=== PATIENT | female | born 1965 | race Caucasian/White ===

== ENCOUNTER 2020-05-30 10:19 | Emergency (ER) | payer OTHER, SELFPAY ==
--- NOTE | ~2020-05-30 | XR_ITS ---
EXAMINATION: XR foot LT min 3V DATE: 05/30/2020 11:03 INDICATION: Left foot pain TECHNIQUE: Dorsoplantar, lateral, and 2 oblique views of the left foot were obtained. COMPARISON: 12/24/2006 FINDINGS: There is no fracture, dislocation, or subluxation. The bones, soft tissues, and joint space s are normal. IMPRESSION: 1. No acute osseous abnormality. Reviewed, dictated and finalized at location A.
[2020-05-30 10:33] VITALS: BP 159/76; PULSE 89; RESP 16; TEMP 37.4; O2SAT 99
--- NOTE | 2020-05-30 10:35 | ED.LOWEXIN ---
HPI - Extremity Injury (Lower) General Chief Complaint: Extremity Injury, Lower Stated Complaint: Foot injury Time Seen by Provider: 05/30/20 10:40 Source: patient and RN notes reviewed Mode of arrival: ambulatory Limitations: no limitations History of Present Illness HPI Narrative: This is a 54 years old female presents to the office for an evaluation of left foot pain for two to three days. She does not recall injury/trauma. However, she was doing exercise (lots of jumping/walking) and went shopping yesterday with sandal. Pain is worse this morning at around 4am; which she took ibuprofen for it. Admits to history of left ankle fracture in the past. She also recalls broken toe; but she does not call it was left or right toe. Denies history of gout. Denies history of osteopenia or osteoporosis. Related Data Home Medications Medication Instructions Recorded Confirmed levothyroxine 50 mcg PO DAILY 05/30/20 05/30/20 Allergies Allergy/AdvReac Type Severity Reaction Status Date / Time azithromycin Allergy Mild RASH Verified 08/21/16 09:46 erythromycin base Allergy Mild RASH Verified 08/21/16 09:46 Penicillins Allergy Mild HIVES, Verified 08/21/16 09:46 FEVER sulfamethoxazole Allergy Unknown RASH Verified 08/21/16 09:46 trimethoprim Allergy Unknown RASH Verified 08/09/16 17:47 Review of Systems Review of Systems: Narrative: CONSTITUTIONAL: Denies fever CARDIOVASCULAR: Denies chest pain RESPIRATORY: Denies dyspnea GASTROINTESTINAL: Denies abdominal pain, nausea, vomiting SKIN: Denies rash/skin lesions/tear/abrasion MUSCULOSKELETAL: Reports left foot with fourth toe pain and swelling without redness/bruise. NEUROLOGIC: Denies lightheaded All other systems reviewed are negative, except as documented in HPI. [facility] Past Medical History Medical History (Updated 05/30/20 @ 10:56 by SULAIMAN Hernandez) Hx of fracture of ankle left ankle Hypothyroidism Seasonal allergies Surgical History Surgical History (Updated 05/30/20 @ 10:38 by SULAIMAN Hernandez) Hx of tonsillectomy Family History Family History (Updated 05/30/20 @ 10:39 by SULAIMAN Hernandez) Mother Rheumatoid arthritis Father Hodgkin's lymphoma Comments At time of signature, I agree with nursing past medical, surgical, social and family history. There is no relevant family history pertinent to the presenting complaint. Exam Narrative: Exam Narrative: GENERAL: This is a well-nourished, well-developed patient, in no apparent distress. CARDIOVASCULAR: Regular rate and rhythm without murmurs, gallops, or rubs. RESPIRATORY: Clear to auscultation. Breath sounds equal bilaterally. No wheezes, rales, or rhonchi. GASTROINTESTINAL: Abdomen soft, non-tender, nondistended. Bowel sounds are active. No guarding. SKIN: warm, intact with no suspicious lesions or rash, good texture and turgor. NEURO: awake, alert, and oriented to person, place and time. There were no obvious focal neurologic abnormalities. EXTREMITIES:Right ankle and foot normal. The left lateral ankle not swollen but there is tenderness and swelling over the dorsum of the foot especially between 2-4toes without obvious erythema. Range of motion limited secondary to pain. No deformity. The skin is intact. Course Vital Signs Vital signs: Vital Signs Temperature 99.3 F 05/30/20 10:33 Pulse Rate 89 05/30/20 10:33 Respiratory Rate 16 05/30/20 10:33 Blood Pressure 159/76 H 05/30/20 10:33 Pulse Oximetry 99 05/30/20 10:33 Temperature 99.3 F 05/30/20 10:33 Pulse Rate 89 05/30/20 10:33 Respiratory Rate 16 05/30/20 10:33 Blood Pressure 159/76 H 05/30/20 10:33 Pulse Oximetry 99 05/30/20 10:33 MDM - Extremity Injury (Lower) MDM Narrative Medical decision making narrative: Elevated blood pressure noted, recommend recheck with her PCP in 2 weeks Discharge instructions reviewed with patient, as well as provided in writing per nursing staff. The ins
== END 2020-05-30 11:38 | disposition home or self-care (01) ==
PROVIDERS: Emergency Provider Nurse Practitioner; PCP Family Medicine Adolescent Medicine
DX: M79.672 Pain in left foot (principal); E03.9 Hypothyroidism, unspecified
CPT/HCPCS: 73630; 99213; G0463

== ENCOUNTER → 2021-06-27 18:06 | Outpatient (CLI) | payer OTHER, SELFPAY ==
--- NOTE | ~2021-06-27 | DEXA_ITS ---
Bone Density Report Name: Larissa Mcclelland Age: 55 Sex: Female Ethnicity: White Date of : 1965 Indication: monitoring treatment; parental hip fracture; Referring Provider: PUMA, GEOVANNY Study: Bone densitometry was performed. Exam Date: June 27, 2021 Accession number: [id number] Bone Density: Region BMD T-score Z-score Classification AP Spine (L1-L4) 0.945 -0.9 0.3 Normal Femoral Neck (Left) 0.724 -1.1 0.0 Osteopenia Total Hip (Left) 0.998 0.5 1.2 Normal Femoral Neck (Right) 0.778 -0.6 0.5 Normal Total Hip (Right) 0.979 0.3 1.1 Normal Total Hip Mean 0.989 0.4 1.2 Normal World Health Organization criteria for BMD impression classify patients as: Normal (T-score at or above -1.0), Osteopenia (T-score between -1.0 and -2.5), or Osteoporosis (T-score at or below -2.5). 10-year Fracture Risk: FRAX not reported because: Treated for osteoporosis Previous Exams: Region Exam Age BMD T-score BMD Change BMD Change Date g/cm2 vs Baseline vs Previous AP Spine(L1-L4) 06/27/2021 55 0.945 -0.9 -0.082* -0.003 06/16/2016 50 0.948 -0.9 -0.079* -0.079* 05/23/2007 41 1.027 -0.2 Total Hip(Left) 06/27/2021 55 0.998 0.5 -0.009 0.002 06/16/2016 50 0.996 0.4 -0.011 -0.011 05/23/2007 41 1.007 0.5 Total Hip(Right) 06/27/2021 55 0.979 0.3 -0.026 -0.025 06/16/2016 50 1.004 0.5 -0.001 -0.001 05/23/2007 41 1.005 0.5 *Denotes significance at 95% confidence level, LSC for AP Spine = 0.022 g/cm2, LSC for Total Hip = 0.027 g/cm2 Clinical Information Provided by Patient: Parent has had a hip fracture Is being treated for osteoporosis Has used the following medications: HRT (i.e. estrogen/hormone therapy), Vitamin D, Calcium, Levothyroxine Patient maximum height was 67.0 Menopause Age: 48 Drinks caffeinated beverages Onset of menses at age 15 Number of children 2 Impression: The patient has low bone mass, based on the Left Femoral Neck T-score. The patient has risk factors, including: parental hip fracture. No significant bone loss was observed. Discussion: PATIENT UNDER TREATMENT WITH NO SIGNIFICANT BMD LOSS SINCE LAST EXAM. In an untreated patient, BMD typically declines with age. A lack of decline or gain is usually a sign that treatment is efficacious and fracture risk is reduced. It is important to ask
== END ==
PROVIDERS: PCP Family Medicine Adolescent Medicine; Visit Provider Nurse Practitioner
DX: Z78.0 Asymptomatic menopausal state (principal)
CPT/HCPCS: 77080

== ENCOUNTER 2021-07-25 16:10 | Emergency (ER) | payer OTHER, SELFPAY ==
--- NOTE | ~2021-07-25 | XR_ITS ---
EXAMINATION: XR chest 2V EXAM DATE: 07/25/2021 16:44 INDICATION: Left-sided chest tightness. TECHNIQUE: Frontal and lateral projections of the chest obtained and reviewed. Comparison is made to prior examination from 01/04/2016. FINDINGS: The lungs are clear. There are no pleural effusions. The cardiomediastinal silhouette is within normal limits. There is no pneumothorax suspected. The bones and soft tissues are unremarka ble. IMPRESSION: No acute cardiopulmonary findings. Reviewed, dictated and finalized at location B.
--- NOTE | 2021-07-25 16:22 | ECG_ITS ---
Measurements Intervals [place] Rate: 77 P: 17 NE: 124 QRS: 11 QRSD: 100 T: 38 QT: 369 QTc: 419 Interpretive Statements SINUS RHYTHM NORMAL ECG Electronically Signed On 07-25-2021 16:59:11 CDT by Stuart Arshad D.O.
[2021-07-25 16:27] VITALS: BP 149/82; PULSE 82; RESP 16; O2SAT 100
[2021-07-25 16:47] LABS: Basophils Absolute Auto 0.1 K/mm3 (0.0-0.1); Basophils Percent Auto 0.6 % (0.2-1.2); Eosinophils Absolute Auto 0.1 K/mm3 (0-0.3); Eosinophils Percent Auto 0.9 % (0-4.4); Hemoglobin 14.1 g/dL (12.0-15.0); Immature Granulocyte Absolute 0.02 K/mm3 (0.00-0.031); Immature Granulocyte Percent A 0.3 % (0-0.5); Lymphocytes Absolute Auto 2.74 K/mm3 (0.9-3.2); Lymphocytes Percent Auto 34.4 % (18.3-44.2); Mean Corpuscular HGB Conc 33.6 g/dl (32-36); Mean Corpuscular Hemoglobin 30.3 pg (26-34); Mean Corpuscular Volume 90.3 fl (80-100); Mean Platelet Volume 8.8 fl (7.4-10.4); Monocytes Absolute Auto 0.5 K/mm3 (0.1-0.6); Monocytes Percent Auto 5.8 % (2.6-8.5); Neutrophils Absolute Auto 4.6 K/mm3 (1.3-6.7); Platelet Count Result 263 k/mm3 (150-375); Red Blood Count 4.65 M/mm3 (4.2-5.4); Red Cell Distribution Width 13.2 % (11.5-14.5)
[2021-07-25 16:56] LABS: Anion Gap 9 mmol/L (8-16); Blood Urea Nitrogen 15 mg/dL (7-17); Calcium 9.3 mg/dL (8.4-10.2); Carbon Dioxide 27 mmol/L (22-30); Chloride 103 mmol/L (98-107); Estimated CRCL calculation 87 ml/min; Estimated Glomerular Filt Rate > 60; Glucose 81 mg/dL (65-110); Potassium 3.7 mmol/L (3.4-5.0); Sodium 139 mmol/L (137-145)
[2021-07-25 17:02] LABS: Partial Thromboplastin Time 27.5 SECONDS (22.3-36.8); Prothrombin Time 12.7 Seconds (11.1-14.7)
[2021-07-25 17:08] LABS: Troponin I < 0.012 ng/mL (0.000-0.034)
[2021-07-25 17:22] VITALS: BP 151/78; PULSE 77; RESP 20; O2SAT 100
[2021-07-25 18:15] VITALS: BP 142/72; PULSE 67; RESP 20; O2SAT 100
--- NOTE | 2021-07-25 18:32 | ED.CHESTPAIN ---
HPI - Chest Pain General Chief Complaint: Chest Pain Stated Complaint: chest pain x4hrs Time Seen by Provider: 07/25/21 17:17 Source: patient Mode of arrival: ambulatory Limitations: no limitations History of Present Illness HPI narrative: 55-year-old with no major medical problems here with complaints of chest discomfort started few hours ago while she was at work. 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 She states there is a lot of work that she could not catch up and started having some chest discomfort. She denies any shortness of breath, nausea or vomiting. No history of fever or chills. No previous history of coronary artery disease. 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) Pain location: other (Mid chest) Pain radiation: none Severity: mild Quality: heaviness Relieving factors: nothing Exacerbating factors: nothing Risk Factors Coronary artery disease risk factors: none Related Data Home Medications Medication Instructions Recorded Confirmed levothyroxine 50 mcg PO DAILY 05/30/20 05/30/20 estradiol-norethindrone acet tablet 07/25/21 Allergies Allergy/AdvReac Type Severity Reaction Status Date / Time azithromycin Allergy Mild RASH Verified 07/25/21 16:26 erythromycin base Allergy Mild RASH Verified 07/25/21 16:26 Penicillins Allergy Mild HIVES, Verified 07/25/21 16:26 FEVER sulfamethoxazole Allergy Unknown RASH Verified 07/25/21 16:26 trimethoprim Allergy Unknown RASH Verified 07/25/21 16:26 Review of Systems Review of Systems: All systems reviewed & are unremarkable except as noted in HPI and below Constitutional: Constitutional: Reports no additional constitutional complaints Eyes: Eyes: Reports no additional eye complaints ENT: Reports system reviewed and no additional complaints, except as documented Cardiovascular: Cardiovascular: Reports as per HPI Respiratory: Respiratory: Reports no additional respiratory complaints Gastrointestinal: Gastrointestinal: Reports no additional gastrointestinal complaints Musculoskeletal: Musculoskeletal: Reports no additional musculoskeletal complaints Integumentary/Breasts: Skin/Breast: Reports system reviewed and no additional complaints, except as docu Neurologic: Reports system reviewed and no additional complaints, except as documented Psychiatric: Psychiatric: Reports no additional psychiatric complaints PMFSH Past Medical History Medical History Hx of fracture of ankle left ankle Hypothyroidism Seasonal allergies Surgical History Surgical History Hx of tonsillectomy Family History Family History Mother Rheumatoid arthritis Father Hodgkin's lymphoma Exam Narrative: GENERAL: Well-appearing, well-nourished, and in no acute distress. HEAD: Normocephalic, atraumatic. EYES: PERRLA and EOMI.. NECK: Supple. CHEST: Clear to auscultation. No respiratory distress. HEART: Regular rate and rhythm. No murmur heard. Normal peripheral pulses. ABDOMEN: Soft, nontender, nondistended, normal active bowel sounds. EXTREMITIES: Normal range of motion. No edema. SKIN: Warm, dry, no rash. NEURO: No focal deficits. Alert and oriented x3. PSYCH: Normal mood and affect. Course Course Emergency Course: had a long discussion with the patient regarding her work stress. I have counseled regarding her work and home situation. Discussed lab work, EKG and chest x-ray findings with the patient her pain at this time appears to be noncardiac. Advised her to follow-up with Dr. Acevedo in the next few days. Vital Signs Vital signs: Vital Signs Pulse Rate 82 07/25/21 16:27 Respiratory Rate 16 07/25/21 16:27 Blood Pressure 149/82 H 07/25/21 16:27 Pulse Oximetry
== END 2021-07-25 18:45 | disposition home or self-care (01) ==
PROVIDERS: Emergency Medicine; Emergency Provider Family Medicine; PCP Family Medicine Adolescent Medicine
DX: R07.89 Other chest pain (principal); F41.9 Anxiety disorder, unspecified; E03.9 Hypothyroidism, unspecified
CPT/HCPCS: 36415; 71046; 80048; 84484; 85025; 85610; 85730; 93005; 99284

== ENCOUNTER 2021-10-03 01:28 | Day surgery (SDC) | payer OTHER, SELFPAY ==
[2021-09-20 08:36] VITALS: BMI 22.8
--- NOTE | 2021-09-30 14:34 | PM.HPGS ---
History of Present Illness History of Present Illness Consent: Risks, benefits, and alternatives have been discussed and questions answered. Patient agrees to proceed with procedure. Chief complaint: hx of colon polyps Narrative: Larissa Mcclelland is a 56 year old female here for colon cancer screening. She had a polyp removed about 5 years ago Review of Systems Review of Systems: All systems reviewed & are unremarkable except as noted in HPI and below PMFSH Past Medical History Medical History Hx of fracture of ankle left ankle Hypothyroidism Seasonal allergies Surgical History Surgical History Hx of tonsillectomy Family History Family History Mother Rheumatoid arthritis Father Hodgkin's lymphoma Social History Social History Smoking status: Never smoker Alcohol intake: current Substance use: never Substance use type: does not use Living arrangements: with family Spiritual care concerns: No Meds Home Medications and Allergies Home Medications Medication Instructions Recorded Confirmed Type levothyroxine 50 mcg PO DAILY 05/30/20 09/20/21 History estradiol-norethindrone acet 1 tablet PO DAILY 07/25/21 09/20/21 History calcium carbonate-vitamin D3 1 tablet PO DAILY 09/20/21 09/20/21 History [Calcium + D] cetirizine [Zyrtec] 10 mg PO DAILY 09/20/21 09/20/21 History cholecalciferol (vitamin D3) 25 mcg PO DAILY 09/20/21 09/20/21 History [Vitamin D3] tvzvtuiaqbmw-eqf-qepx-FA-vit K 1 tablet PO DAILY 09/20/21 09/20/21 History [Adults Multivitamin] Allergies Allergy/AdvReac Type Severity Reaction Status Date / Time Penicillins Allergy Severe HIVES, Verified 10/03/21 09:59 FEVER azithromycin Allergy Intermediate RASH Verified 10/03/21 09:59 erythromycin base Allergy Intermediate RASH Verified 10/03/21 09:59 sulfamethoxazole Allergy Intermediate RASH Verified 10/03/21 09:59 trimethoprim Allergy Intermediate RASH Verified 10/03/21 09:59 Exam Resp: Auscultation: clear to auscultation bilaterally Cardio: Rate: regular rate Rhythm: regular rhythm GI: GI Palp: Yes Soft to palpation and No Tenderness to palpation present (GI) Assessment and Plan Assessment and plan (1) Colon cancer screening: Code(s): Z12.11 - Encounter for screening for malignant neoplasm of colon Status: Acute Assessment and Plan: Colonoscopy with possible biopsy or polypectomy or cautery or injection of substances.
--- NOTE | 2021-10-03 08:07 | WPDANESEPPF ---
Anes - Initial Pre Proc Eval Procedure: Operation Date: 10/03/21 11:00 Proposed Procedures p Screening Colonoscopy - Marshall Gaona MD Date/Time: 10/03/21 08:07 Surgeon: Marshall Gaona MD Pre Op Diagnosis: hx of colon polyps Patient Data Age: 56 Gender: F Height: 1.7 m Weight: 66 kg Allergies Allergy/AdvReac Type Severity Reaction Status Date / Time Penicillins Allergy Severe HIVES, Verified 10/03/21 09:59 FEVER azithromycin Allergy Intermediate RASH Verified 10/03/21 09:59 erythromycin base Allergy Intermediate RASH Verified 10/03/21 09:59 sulfamethoxazole Allergy Intermediate RASH Verified 10/03/21 09:59 trimethoprim Allergy Intermediate RASH Verified 10/03/21 09:59 Home Medications Medication Instructions Recorded Confirmed Type levothyroxine 50 mcg PO DAILY 05/30/20 09/20/21 History estradiol-norethindrone acet 1 tablet PO DAILY 07/25/21 09/20/21 History calcium carbonate-vitamin D3 1 tablet PO DAILY 09/20/21 09/20/21 History [Calcium + D] cetirizine [Zyrtec] 10 mg PO DAILY 09/20/21 09/20/21 History cholecalciferol (vitamin D3) 25 mcg PO DAILY 09/20/21 09/20/21 History [Vitamin D3] omkioheoixmy-xjb-bpkk-FA-vit K 1 tablet PO DAILY 09/20/21 09/20/21 History [Adults Multivitamin] Patient hx anesthesia problems: none Family hx anesthesia problems: none Results Review: All pre-operative results and documents have been reviewed as part of the pre-operative evaluation. [facility] Past Medical History Medical History Hx of fracture of ankle left ankle Hypothyroidism Seasonal allergies Surgical History Surgical History Hx of tonsillectomy Family History Family History Mother Rheumatoid arthritis Father Hodgkin's lymphoma Social History Social History Smoking status: Never smoker Alcohol intake: current Substance use: never Substance use type: does not use Living arrangements: with family Spiritual care concerns: No Anes - Eval Final PreProcedure Day of Procedure 10/03/21 08:07 Patient weight: overweight Heart: regular rate and rhythm Lungs: clear to auscultation and normal air movement Airway: Mallampati scale class II Neurological: alert and oriented Last oral intake: >/= 8 hours ASA classification: II Emergent: no Anesthetic plan: proceed Anesthesia type and monitoring: general GIVS Results Review: All pre-operative results and documents have been reviewed as part of the pre-operative evaluation. Informed Consent: The patient's anesthetic plan and its attendant risks and benefits were discussed with the patient/family/POA. Questions were solicited and answers provided to the satisfaction of the patient/family/POA.
[2021-10-03 10:00] VITALS: BP 147/86; PULSE 94; RESP 18; TEMP 36.7; O2SAT 100
[2021-10-03] MEDS: LACTATED RINGERS 1,000 ML 150 ML IV CONT (10:10)
--- NOTE | 2021-10-03 10:12 | SUR.PREOP ---
DR LOCK NOTIFIED PT'S LMP AT AGE 48 AFTER ABLATION. NEW ORDER RECEIVED THAT NO TEST NEEDS COMPLETED.
[2021-10-03 10:39] VITALS: BP 128/80; PULSE 74; RESP 25; O2SAT 98
[2021-10-03 10:49] VITALS: BP 167/76; PULSE 65; RESP 21; O2SAT 100
[2021-10-03 10:59] VITALS: BP 151/81; PULSE 62; RESP 15; O2SAT 100
== END 2021-10-03 11:07 | disposition home or self-care (01) ==
PROVIDERS: PCP Family Medicine Adolescent Medicine; Visit Provider Internal Medicine Gastroenterology
PROC: 0DJD8ZZ Inspection of Lower Intestinal Tract, Via Natural or Artificial Opening Endoscopic (ICD-10-PCS; CPT 45378; principal; 2021-10-03 11:00)
DX: Z12.11 Encounter for screening for malignant neoplasm of colon (principal); K63.5 Polyp of colon; E03.9 Hypothyroidism, unspecified
CPT/HCPCS: 45380; 88305; J2704; J7120

== ENCOUNTER 2023-03-13 10:38 | Emergency (ER) | payer OTHER, SELFPAY ==
--- NOTE | 2023-03-13 10:39 | ED.DIZZY ---
HPI - Dizziness General Chief Complaint: Dizziness Stated Complaint: DIZZY Time Seen by Provider: 03/13/23 10:40 Source: patient and RN notes reviewed History of Present Illness HPI Narrative: Patient is a 57-year-old female who presents to urgent care with complaints of intermittent dizziness, headaches, high blood pressure. Patient states that she had an episode last Sunday and symptoms resolved quickly. Patient was not evaluated at that time. Patient states she had another episode today at work, evaluated her blood pressure, and it was 170/92. Patient does not have a history of hypertension. States that she has been under a lot of stress recently, taking care of her 88-year-old mother during her cancer treatments. Patient states that yesterday her [place] [address] [place] [address] [place] was stuck on the side of the highway for several hours. Patient also reports that her son is in town from [place] and she has been trying to entertain him for the last week. 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 Patient states that she feels very calm and collected at this time. Denies any chest discomfort at the time of her dizziness or palpitations. No other acute complaints. No acute distress noted. Patient aware of the plan of care. Some parts of this dictation were generated by voice recognition software and may contain typographical and/or grammatical inaccuracies. Related Data Home Medications Medication Instructions Recorded Confirmed estradiol-norethindrone acet 1 1 tablet PO DAILY 07/25/21 09/20/21 mg-0.5 mg tablet calcium carbonate 600 mg-vitamin 1 tablet PO DAILY 09/20/21 09/20/21 D3 5 mcg (200 unit) tablet cetirizine 10 mg tablet (Zyrtec) 10 mg PO DAILY 09/20/21 09/20/21 cholecalciferol (vitamin D3) 25 25 mcg PO DAILY 09/20/21 09/20/21 mcg (1,000 unit) tablet (Vitamin D3) multivit with minerals-iron 18 1 tablet PO DAILY 09/20/21 09/20/21 mg-folic ac 400 mcg-vit K 25 mcg tablet (Adults Multivitamin) Allergies Allergy/AdvReac Type Severity Reaction Status Date / Time Penicillins Allergy Severe HIVES, Verified 03/13/23 10:47 FEVER azithromycin Allergy Intermediate RASH Verified 03/13/23 10:47 erythromycin base Allergy Intermediate RASH Verified 03/13/23 10:47 sulfamethoxazole Allergy Intermediate RASH Verified 03/13/23 10:47 trimethoprim Allergy Intermediate RASH Verified 03/13/23 10:47 Review of Systems Review of Systems: CONSTITUTIONAL: Denies fever, chills, or sweats. EYES: Denies visual changes, redness, or discharge. ENT: Denies rhinorrhea, congestion, sore throat, or otalgia. CARDIOVASCULAR: Denies chest pain, palpitations, or edema. RESPIRATORY: Denies cough or dyspnea. GASTROINTESTINAL: Denies abdominal pain, nausea, vomiting, or diarrhea. GENITOURINARY: Denies dysuria or hematuria. SKIN: Denies rash or itching. MUSCULOSKELETAL: Denies back pain, joint pain, or myalgia. NEUROLOGIC: Reports of intermittent dizziness and headaches PSYCHIATRIC: Reports of increased stress and anxiety All other systems reviewed are negative, except as documented in HPI. [facility] Past Medical History Medical History (Updated 03/13/23 @ 11:16 by SULAIMAN Mejia) Abnormal colonoscopy 10/02 1 polyp Hx of fracture of ankle left ankle Hypothyroidism Seasonal allergies Surgical History Surgical History (Updated 02/17/22 @ 07:41 by Gene Andres MD) History of breast biopsy 2019 Benign Hx of tonsillectomy Family History Family History (Updated 02/20/22 @ 13:04 by Ester Cordova MA) Mother Rheumatoid arthritis Hypertension Father Hodgkin's lymphoma Grandparent Breast cancer Other Colon polyp Social History Social History (Updated 02/20/22 @ 13:05 by Ester Cordova MA) Smoking status: Never smoker Second hand tobacco smoke exposure: No Alcohol i
[2023-03-13 10:48] VITALS: BP 155/83; PULSE 77; RESP 16; TEMP 37.1; O2SAT 100
[2023-03-13 10:50] VITALS: BP 155/83; PULSE 77; RESP 16; TEMP 37.1; O2SAT 100
[2023-03-13 11:18] VITALS: BP 138/78
== END 2023-03-13 11:20 | disposition home or self-care (01) ==
PROVIDERS: Emergency Provider Nurse Practitioner Family; PCP Family Medicine Adolescent Medicine
DX: F43.9 Reaction to severe stress, unspecified (principal); F41.9 Anxiety disorder, unspecified; E03.9 Hypothyroidism, unspecified
CPT/HCPCS: 99213; G0463

== ENCOUNTER 2024-05-19 11:22 | Outpatient (CLI) | payer OTHER, SELFPAY ==
--- NOTE | ~2024-05-19 | CT_ITS ---
CT of the Abdomen and Pelvis: Indication: Abdominal pain Technique: 2.5 mm axial scans were obtained through the abdomen and pelvis following intravenous adm inistration of 100 cc of Omnipaque 350. Dose reduction technique was used on this scan by utilizing a utomated exposure control and iterative reconstruction technique. The dose-length product (DLP) was 4 04.77 mGy-cm. Findings: Scans through the lung bases are unremarkable. The liver, spleen, pancreas, gallbladder, adrenals and right kidney are within normal limits. 9 mm no nobstructing left renal stone present. No evidence of aortic aneurysm. No lymphadenopathy. No bowel obstruction or bowel wall thickening. There is no evidence to suggest acute appendicitis. Images through the pelvis were performed. Urinary bladder unremarkable. No pelvic mass seen. No ascit es. Impression: No acute abnormality. 9 mm nonobstructing left renal stone. Reviewed, dictated and finalized at [facility]. Impression: No acute abnormality. 9 mm nonobstructing left renal stone.
== END 2024-05-19 11:23 ==
LOC: MICIMG 11:23
PROVIDERS: PCP Nurse Practitioner Family; Visit Provider Nurse Practitioner Family
DX: N20.0 Calculus of kidney (principal)
CPT/HCPCS: 74177; Q9967

== ENCOUNTER 2024-05-23 11:11 | Outpatient (CLI) | payer OTHER, SELFPAY ==
--- NOTE | ~2024-05-23 | US_ITS ---
Abdominal Sonogram: Real-time sonographic imaging of the abdomen was performed. Clinical History: Pancreatitis Findings: The liver appears normal with no evidence of mass lesion or bile duct dilatation. Main por sandoval vein demonstrates normal direction of flow. The spleen is normal in size without evidence of foca l lesion. The gallbladder is well distended, and appears normal with no evidence of gallstone or wal l thickening. The common bile duct measures 4 mm. The visualized pancreas, aorta, and IVC are unrema rkable. The right kidney measures 9.9 cm in length and the left kidney measures 11.1 cm. There is n o hydronephrosis. There are nonobstructing renal stones. There is a 2.4 cm right renal cyst with prob able internal calcifications or other hyperechoic material.. Impression: No evidence of cholelithiasis. Nonobstructing left renal stone. 2.4 cm renal cyst with internal calcifications or other hyperechoic material. No hydronephrosis. Reviewed, dictated and finalized at location . Impression: No evidence of cholelithiasis. Nonobstructing left renal stone. 2.4 cm renal cyst with internal calcifications or other hyperechoic material. No hydronephrosis.
== END 2024-05-23 11:12 ==
PROVIDERS: PCP Nurse Practitioner Family; Visit Provider Family Medicine Adolescent Medicine
DX: N28.1 Cyst of kidney, acquired (principal); N20.0 Calculus of kidney
CPT/HCPCS: 76700

== ENCOUNTER 2024-06-16 12:19 | Outpatient (CLI) | payer OTHER, SELFPAY ==
--- NOTE | ~2024-06-16 | XR_ITS ---
XR abdomen/kub 1V Ordering provider: Bianka Hoffman PA-C History: . KIDNEY STONE, LT SIDE FLANK PAIN . Comparison: None. FINDINGS: BOWEL: Nonobstructive bowel gas pattern. ORGANOMEGALY: None. SIGNIFICANT PATHOLOGIC CALCIFICATIONS: Stone in the left kidney lower pole. OTHER: No free air is seen under the diaphragm. IMPRESSION: NO ACUTE ABDOMINAL FINDINGS. Stone in the left kidney lower pole. Reviewed, dictated and finalized at location A.
== END 2024-06-16 12:20 | disposition home or self-care (01) ==
LOC: ANHIMG 12:22
PROVIDERS: PCP Family Medicine Adolescent Medicine; Visit Provider Physician Assistant
DX: N20.0 Calculus of kidney (principal)
CPT/HCPCS: 74018

== ENCOUNTER 2024-06-30 17:15 | Outpatient (CLI) | payer OTHER, SELFPAY ==
[2024-06-30 17:49] LABS: Anion Gap 10 mmol/L (4-12); Blood Urea Nitrogen 10 mg/dL (7-17); Calcium 9.4 mg/dL (8.4-10.2); Carbon Dioxide 30 mmol/L (22-30); Chloride 94 mmol/L (98-107); Estimated Glomerular Filt Rate > 60; Glucose 81 mg/dL (65-110); Sodium 134 mmol/L (137-145)
[2024-06-30 20:22] LABS: Prothrombin Time 13.3 Seconds (11.1-14.7)
== END 2024-06-30 17:16 | disposition home or self-care (01) ==
PROVIDERS: Anesthesiology; PCP Family Medicine Adolescent Medicine; Visit Provider Urology
DX: N20.0 Calculus of kidney (principal); I10 Essential (primary) hypertension; Z01.818 Encounter for other preprocedural examination
CPT/HCPCS: 36415; 80048; 85610; 85730; 87086

== ENCOUNTER 2024-07-04 00:30 | Day surgery (SDC) | payer OTHER, SELFPAY ==
--- NOTE | 2024-06-30 17:49 | PC.NURSE ---
Report to the Outpatient Waiting Room, entrance under the green pavilion located off [facility], at time 1200 on date 07/04/24. Planned Procedure Time: 1400. Time changes happen often and if your time is changed the preop area will call you the afternoon before. - You and your visitor will be asked to self-screen and do not enter if you have any COVID symptoms. - A mask is optional within the hospital at this time. Patients may have clear liquids (water, carbonated beverages, clear teas, apple juice) until 3 hours prior to surgery with a maximum of 20 ounces. 1100 - No food from midnight until time of surgery - Infants may have breast milk until 4 hours before surgery, formula 6 hours prior to surgery. - Children will be allowed to drink immediately following surgery. If applicable, please bring a bottle or sippy cup to assist with drinking. Juice, water, soda, and popsicles are readily available. For infants on formula, please bring formula the day of surgery. Pacifiers are allowed. Take the following medications with a SIP of water the morning of surgery: Estradiol, Levothyroxine DO NOT STOP ANY OF YOUR OTHER PRESCRIPTION MEDICATIONS PRIOR TO SURGERY ?EXCEPT THE FOLLOWING Medications to discontinue per physician Multivitamins & Supplements- stop three days prior to surgery, spironolactone, flonase- hold morning of surgery Please no make-up, nail kyrgyz, hairspray, perfume, deodorant, or body powder the day of surgery. No jewelry (including any body piercings) or valuables the day of surgery, leave them at home. Please take a shower or bath the night before, or the morning of, surgery with an antibacterial soap. Wear comfortable, loose fitting clothing. Children are encouraged to wear pajamas. - Jewelry must be removed prior to entering the operating room. Rings and piercings that are not removed may be cut off. - The hospital will not accept responsibility for valuables. - Please leave all valuables, including medications, at home the day of surgery. If you are going home after surgery, a licensed transportation driver must drive you home. - NO public transportation without another adult if you receive anesthesia. - We recommend that an adult stay with you for 24 hours following discharge. - We also recommend that you do not drive, make important decision, drink alcoholic beverages, or take any drugs that were not prescribed by your health care provider for at least 24 hours after your discharge time. For Pediatric surgeries, we recommend two adults accompany the child home. Follow any additional instructions given to you from your surgeon. If you or anyone in your household have experienced Covid symptoms in the past week, please notify your surgeon or the nurse liaison at the phone number below for possible testing. Telephone instructions given to Patient- Larissa Mcclelland and asked if any additional questions and then verbalized understanding. Patient advised to call surgeon office or pre surgery nurse liaison [phone] if any additional questions.
[2024-06-30 17:55] VITALS: BMI 22.7
[2024-07-04] VITALS (9 sets, daily range): BP systolic 124–156; BP diastolic 58–82; PULSE 62–80; RESP 10–20; TEMP 36.5–37.4; O2SAT 99–100
--- NOTE | ~2024-07-04 | XR_ITS ---
EXAMINATION: XR abdomen/kub 1V DATE: 07/04/2024 10:46 INDICATION: Kidney stone. TECHNIQUE: A supine view of the abdomen on 2 radiographs was obtained. COMPARISON: Abdomen radiographs 06/16/2024, CT abdomen and pelvis 05/19/24 FINDINGS: There are no dilated loops of bowel. There are phleboliths in the pelvis. There are 11 and 3 mm stones in left kidney. IMPRESSION: 1. Left kidney stones. Reviewed, dictated and finalized at location A. IMPRESSION: 1. Left kidney stones.
--- NOTE | 2024-07-04 05:51 | WPDHPUPDATE1 ---
History and Physical Update Update Date/Time: 07/04/24 05:51 History and Physical has been reviewed, including an updated exam of the patient. There are NO changes in the patient's condition. Risks, benefits, and alternatives have been discussed and questions answered. Patient agrees to proceed with procedure.
--- NOTE | 2024-07-04 11:18 | WPDANESEPPF ---
Anes - Initial Pre Proc Eval Procedure: Operation Date: 07/04/24 12:30 Proposed Procedures p Left Extracorporeal Shock Wave Lithotripsy - Lowell Nam MD Date/Time: 07/04/24 11:18 Surgeon: Lowell Nam MD Pre Op Diagnosis: ureteral stone Patient Data Age: 58 Gender: F Height: 1.7 m Weight: 65.9 kg Allergies Allergy/AdvReac Type Severity Reaction Status Date / Time Penicillins Allergy Severe HIVES, Verified 06/30/24 17:36 FEVER azithromycin Allergy Intermediate RASH Verified 06/30/24 17:36 erythromycin base Allergy Intermediate RASH Verified 06/30/24 17:36 sulfamethoxazole Allergy Intermediate RASH Verified 06/30/24 17:36 trimethoprim Allergy Intermediate RASH Verified 06/30/24 17:36 Home Medications Medication Instructions Recorded Confirmed Type calcium carbonate 600 mg-vitamin 1 tablet PO DAILY 09/20/21 06/30/24 History D3 5 mcg (200 unit) tablet cholecalciferol (vitamin D3) 25 25 mcg PO DAILY 09/20/21 06/30/24 History mcg (1,000 unit) tablet (Vitamin D3) multivit with minerals-iron 18 1 tablet PO DAILY 09/20/21 06/30/24 History mg-folic ac 400 mcg-vit K 25 mcg tablet (Adults Multivitamin) estradiol-norethindrone acet 1 1 tablet PO DAILY 06/20/23 06/30/24 History mg-0.5 mg tablet (Activella) levothyroxine 50 mcg tablet See Rx Instructions .Route 08/03/23 06/30/24 Rx .COMPLEX #90 tabs fluticasone propionate 50 2 spray intranasal DAILY 05/13/24 06/30/24 History mcg/actuation nasal spray,suspension spironolactone 100 mg tablet 100 mg PO DAILY 05/13/24 06/30/24 History Patient hx anesthesia problems: none Family hx anesthesia problems: none Results Review: All pre-operative results and documents have been reviewed as part of the pre-operative evaluation. [facility] Past Medical History Medical History Abnormal colonoscopy 10/02 1 polyp Hx of fracture of ankle left ankle Hypothyroidism Seasonal allergies Surgical History Surgical History History of breast biopsy 2019 Benign Hx of tonsillectomy Family History Family History Mother Rheumatoid arthritis Hypertension Father Hodgkin's lymphoma Grandparent Breast cancer Other Colon polyp Social History Social History Smoking status: Never smoker Second hand tobacco smoke exposure: No Alcohol intake: current Drinks per week: 1 Alcohol use details: Socially Substance use: never Substance use type: does not use Lack of Transportation: No Lack of Food: Never True Current Housing: I Have Housing Concerned About Future Housing: No Difficulty Paying Gas/Electric Bills: No Difficulty Paying for Meds: No Currently Unemployed: No Education: Bachelor's Degree Difficulty w/ Childcare or Family Care: No Living arrangements: with family Occupation/Education: occupation Gender identity (if verbalized by the patient): Female Sexual Orientation (if Verbalized by the Patient): Straight or Heterosexual Spiritual care concerns: No Agree to blood products: Yes Anes - Eval Final PreProcedure Day of Procedure 07/04/24 11:18 Patient weight: normal Heart: regular rate and rhythm Lungs: clear to auscultation Airway: Mallampati scale class II Neurological: alert and oriented Last oral intake: >/= 8 hours ASA classification: II Emergent: no Anesthetic plan: proceed Anesthesia type and monitoring: general LMA and standard monitoring Results Review: All pre-operative results and documents have been reviewed as part of the pre-operative evaluation. Informed Consent: The patient's anesthetic plan and its attendant risks and benefits were discussed with the patient/family/POA. Questions were solicited and answers provided
[2024-07-04] MEDS: LACTATED RINGERS 1,000 ML 30 ML IV CONT (11:30)
[2024-07-04] MEDS: ceFAZolin 2 GM/D5W 50 ML 2 GM/50 ML BAG IVPB (12:35)
--- NOTE | 2024-07-04 12:48 | W.PM.PROC2 ---
Procedure Note - Detailed Date of Procedure 07/04/24 Pre-op Diagnosis Left kidney stone Post-op Diagnosis Same Procedure Performed Left ESWL Surgeon Lowell Nam MD Anesthesia General Description of Procedure The patient was brought to the operative suite where she was placed in the supine position on the Dornier lithotripsy table. The focal point of the lithotripter was placed at a 8-9mm left renal calculus. A total of 2500 shocks were delivered at a power setting of 4. There appeared to be good fragmentation of the stone. The patient tolerated the procedure well and was taken to the recovery room in good condition. Drains No Packing No Pathology None sent Complications No immediate complications Condition Stable Disposition PACU
[2024-07-04] MEDS: KETOROLAC 15 MG/ML VIAL (*BKC) IV PUSH (13:16)
== END 2024-07-04 15:23 | disposition home or self-care (01) ==
PROVIDERS: PCP Family Medicine Adolescent Medicine; Visit Provider Urology
PROC: (CPT 50590; principal; 2024-07-04 12:30)
DX: N20.0 Calculus of kidney (principal); E03.9 Hypothyroidism, unspecified
CPT/HCPCS: 50590; 36415; 74018; 80048; 85610; 85730; 87086; J0690; J1885; J2250; J2405; J2704; J3010; J7120

== ENCOUNTER 2024-07-15 07:21 | Outpatient (CLI) | payer OTHER, SELFPAY ==
--- NOTE | ~2024-07-15 | XR_ITS ---
EXAMINATION: XR abdomen/kub 1V DATE: 07/15/2024 07:41 INDICATION: Left kidney stone TECHNIQUE: A supine view of the abdomen on 2 radiographs was obtained. COMPARISON: 07/04/2024 FINDINGS: There appears to been some fragmentation of the larger previously 11 mm stone in the lower pole of th e left kidney, the largest fragment now measuring 8 mm. There are a few additional new small fragment s along with the prior smaller 3 mm stone seen more peripherally in the calyces of the lower pole the left kidney. No stones or stone fragments seen along the course of the left ureter. Unchanged patter n of phleboliths in the pelvis. IMPRESSION: 1. Interval fragmentation of the larger of the 2 previously seen left renal stones. Reviewed, dictated and finalized at location A. IMPRESSION: 1. Interval fragmentation of the larger of the 2 previously seen left renal sto kristopher.
== END 2024-07-15 07:22 | disposition home or self-care (01) ==
PROVIDERS: PCP Family Medicine Adolescent Medicine; Visit Provider Physician Assistant
DX: N20.0 Calculus of kidney (principal)
CPT/HCPCS: 74018

== ENCOUNTER 2024-10-06 12:33 | Emergency (ER) | payer OTHER, SELFPAY ==
[2024-10-06 13:10] VITALS: BP 171/95; PULSE 93; RESP 17; TEMP 36.8; O2SAT 100
[2024-10-06 13:19] LABS: EDCOVIDSCREEN Negative (Negative); EDINFLUASCREEN Negative (Negative); EDINFLUBSCREEN Negative (Negative)
--- NOTE | 2024-10-06 13:24 | ED_ITS ---
HPI - URI/Sore Throat General Chief Complaint: Upper Respiratory Infection Stated Complaint: HEADACHE/SINUS CONGESITON/SORE THROAT Time Seen by Provider: 10/06/24 13:24 Source: patient Mode of arrival: ambulatory Limitations: no limitations History of Present Illness HPI Narrative: 59 yo F presents with c/o fatigue, nasal congestion, cough for 2 to 3 days. 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 No CP or SOB. All systems reviewed and negative except as noted above. Related Data Home Medications Medication Instructions Recorded Confirmed calcium 600 mg (as 1 tablet PO DAILY 09/20/21 10/06/24 carbonate)-vitamin D3 5 mcg (200 unit) tablet cholecalciferol (vitamin D3) 25 25 mcg PO DAILY 09/20/21 10/06/24 mcg (1,000 unit) tablet (Vitamin D3) multivit with minerals-iron 18 1 tablet PO DAILY 09/20/21 10/06/24 mg-folic ac 400 mcg-vit K 25 mcg tablet (Adults Multivitamin) estradiol-norethindrone acet 1 1 tablet PO DAILY 06/20/23 10/06/24 mg-0.5 mg tablet (Activella) fluticasone propionate 50 2 spray intranasal DAILY 05/13/24 10/06/24 mcg/actuation nasal spray,suspension spironolactone 100 mg tablet 100 mg PO DAILY 05/13/24 10/06/24 Allergies Allergy/AdvReac Type Severity Reaction Status Date / Time Penicillins Allergy Severe HIVES, Verified 10/06/24 13:13 FEVER azithromycin Allergy Intermediate RASH Verified 10/06/24 13:13 erythromycin base Allergy Intermediate RASH Verified 10/06/24 13:13 sulfamethoxazole Allergy Intermediate RASH Verified 10/06/24 13:13 Review of Systems Review of Systems: CONSTITUTIONAL: Denies fever, chills, or sweats. Reports fatigue EYES: Denies visual changes, redness, or discharge. ENT: Reports rhinorrhea, congestion. Denies sore throat, or otalgia. CARDIOVASCULAR: Denies chest pain, palpitations, or edema. RESPIRATORY: Reports cough. Denies dyspnea. GASTROINTESTINAL: Denies abdominal pain, nausea, vomiting, or diarrhea. GENITOURINARY: Denies dysuria or hematuria. SKIN: Denies rash or itching. MUSCULOSKELETAL: Denies back pain, joint pain, or myalgia. NEUROLOGIC: Denies headache, numbness, or weakness. PSYCHIATRIC: Denies anxiety or depression. All other systems reviewed are negative, except as documented in HPI. [facility] Past Medical History Medical History Abnormal colonoscopy 10/02 1 polyp Hx of fracture of ankle left ankle Hypothyroidism Seasonal allergies Surgical History Surgical History History of breast biopsy 2019 Benign Hx of tonsillectomy Family History Family History Mother Rheumatoid arthritis Hypertension Father Hodgkin's lymphoma Grandparent Breast cancer Other Colon polyp Social History Social History Smoking status: Never smoker Second hand tobacco smoke exposure: No Alcohol intake: current Drinks per week: 1 Alcohol use details: Socially Substance use: never Substance use type: does not use Lack of Transportation: No Lack of Food: Never True Current Housing: I Have Housing Concerned About Future Housing: No Difficulty Paying Gas/Electric Bills: No Difficulty Paying for Meds: No Currently Unemployed: No Education: Bachelor's Degree Difficulty w/ Childcare or Family Care: No Living arrangements: with family Occupation/Education: occupation Gender identity (if verbalized by the patient): Female Sexual Orientation (if Verbalized by the Patient): Straight or Heterosexual Spiritual care concerns: No Agree to blood products: Yes Comments At time of signature, agree with nursing past medical, surgical, social and family history. There is no relevant family history pertinent to the presenting complaint. Exam Narrative: GENERAL: This is a well-nourished, well-developed patient, in no apparent distress. HEAD: normocephalic, atraumatic. EYES: PERRL. Sclera clear/white. Vision is grossly intact. EARS: External ears normal, auditory canals clear and without drainage, TMs normal without perforation. Hearing grossly intact. NOSE: External nose normal with no obvious nasal discharge, nares without redness, no rhinorrhea. THROAT: Mucous membranes moist, posterior pharynx clear. NECK: Neck supple, non-tender without lymphadenopathy, masses or thyromegaly. CARDIOVASCULAR: Regular rate and rhythm without murmurs, gallops, or rubs. RESPIRATORY: Clear to auscultation. Breath sounds equal bilaterally. No wheezes, rales, or rhonchi. SKIN: warm, Dry, intact with no suspicious lesions or rash, good texture and turgor. NEURO: awake, alert, and oriented to person, place and time. There were no obvious focal neurologic abnormalities. EXTREMITIES: No joint tenderness, effusion, or edema noted. Course Course Level of Care: Express Care Visit Vital Signs Vital signs: Vital Signs Temperature 36.8 C 10/06/24 13:10 Pulse Rate 93 10/06/24 13:10 Respiratory Rate 17 10/06/24 13:10 Blood Pressure 171/95 H 10/06/24 13:10 Pulse Oximetry 100 10/06/24 13:10 Oxygen Delivery Room Air 10/06/24 13:10 Temperature 36.8 C 10/06/24 13:10 Pulse Rate 93 10/06/24 13:10 Respiratory Rate 17 10/06/24 13:10 Blood Pressure 171/95 H 10/06/24 13:10 Pulse Oximetry 100 10/06/24 13:10 Oxygen Delivery Room Air 10/06/24 13:10 Reviewed MDM - URI/Sore Throat MDM Narrative Medical decision making narrative: Patient well-appearing. Lungs clear to auscultation. Patient would like antibiotic to treat pneumonia due to pneumonia exposure. 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 Patient is aware of diagnosis, understands and agrees to treatment plan. Anticipatory guidance given. Patient agrees to follow-up as directed and is aware of reasons to seek care at the emergency department. Portions of this record may have been created with voice recognition software Differential Diagnosis Differential diagnosis: Likely upper respiratory infection, viral infection, influenza and other (Pneumonia) Lab Data Labs: Lab Results 10/06/24 Range/Units 13:17 POC Influenza A Ag Negative (Negative) POC Influenza B Ag Negative (Negative) POC SARS CoV-2 Ag Negative (Negative) Discharge Plan Discharge Clinical Impression: Upper respiratory infection with cough and congestion, Exposure to pneumonia Patient Disposition: Home, Self-Care Condition: Stable Instructions: Pneumonia (ED) Additional Instructions: Take antibiotic as prescribed until gone. Continue taking ogpj-sys-[id number] medication to treat her symptoms such as DayQuil NyQuil cold and flu. Drink at least 64 oz water a day. Follow-up with your doctor if symptoms are not improving. Prescriptions: New doxycycline hyclate 100 mg capsule 100 mg PO BID 7 Days Qty: 14 0RF No Action estradiol-norethindrone acet [Activella] 1-0.5 mg tablet 1 tablet PO DAILY fluticasone propionate 50 mcg/actuation spray,suspension 2 spray intranasal DAILY Rx Instructions: administer into each nostril spironolactone 100 mg tablet 100 mg PO DAILY calcium carbonate-vitamin D3 600 mg(1,500mg) -200 unit Tablet 1 tablet PO DAILY cholecalciferol (vitamin D3) [Vitamin D3] 25 mcg (1,000 unit) Tablet 25 mcg PO DAILY Adults Multivitamin 18 mg iron-400 mcg-25 mcg Tablet 1 tablet PO DAILY levothyroxine 50 mcg tablet See Rx Instructions .ROUTE .COMPLEX Qty: 90 2RF Dose Instruction: TAKE 1 TABLET DAILY Rx Instructions: TAKE 1 TABLET DAILY Follow-up/Referrals: Gene Andres MD [Primary Care Provider] - Stand Alone Forms: Work/School Release IP Time of Disposition: 13:41
== END 2024-10-06 13:43 | disposition home or self-care (01) ==
PROVIDERS: Emergency Provider Nurse Practitioner Family; PCP Family Medicine Adolescent Medicine
DX: J06.9 Acute upper respiratory infection, unspecified (principal); R05.9 Cough, unspecified; Z20.89 Contact with and (suspected) exposure to other communicable diseases; Z20.822 Contact with and (suspected) exposure to COVID-19; E03.9 Hypothyroidism, unspecified
CPT/HCPCS: 87426; 87804; 99213; G0463

== ENCOUNTER 2024-11-06 11:19 | Outpatient (CLI) | payer OTHER, SELFPAY ==
--- NOTE | ~2024-11-06 | XR_ITS ---
XR abdomen/kub 1V Ordering provider: Lowell Nam MD History: . Kidney Stone, FOLLOW UP . Comparison: None. FINDINGS: BOWEL: Nonobstructive bowel gas pattern. ORGANOMEGALY: None. SIGNIFICANT PATHOLOGIC CALCIFICATIONS:. Left kidney tiny stones. OTHER: No free air is seen under the diaphragm. IMPRESSION: NO ACUTE ABDOMINAL FINDINGS. Left kidney tiny stones. Reviewed, dictated and finalized at location A. ISTRY SPECIALIST
== END 2024-11-06 11:20 | disposition home or self-care (01) ==
PROVIDERS: PCP Family Medicine Adolescent Medicine; Visit Provider Urology
DX: N20.0 Calculus of kidney (principal)
CPT/HCPCS: 74018

== ENCOUNTER 2024-12-20 09:50 | Outpatient (CLI) | payer OTHER, SELFPAY ==
--- NOTE | ~2024-12-20 | DEXA_ITS ---
Bone Density Report Name: DAREK RUIZ Age: 59 Sex: Female Ethnicity: White Date of : 1965 Indication: postmenopausal; screening for osteoporosis; parental hip fracture; Referring Provider: PUMA, GEOVANNY Study: Bone densitometry was performed. Exam Date: December 20, 2024 Accession number: [id number] Bone Density: Region BMD T-score Z-score Classification AP Spine(L1-L4) 0.915 -1.2 0.2 Osteopenia Femoral Neck (Left) 0.727 -1.1 0.2 Osteopenia Total Hip (Left) 0.961 0.2 1.1 Normal Femoral Neck (Right) 0.757 -0.8 0.5 Normal Total Hip (Right) 0.950 0.1 1.0 Normal Total Hip Mean 0.955 0.2 1.1 Normal World Health Organization criteria for BMD impression classify patients as: Normal (T-score at or above -1.0), Osteopenia (T-score between -1.0 and -2.5), or Osteoporosis (T-score at or below -2.5). 10-year Fracture Risk(1): Major Osteoporotic Fracture 14% Hip Fracture 0.5% Reported Risk Factors: [place] (), Neck BMD=0.727, BMI=23.2, parental fracture (1) FRAX(R) Version 3.08. Fracture probability calculated for an untreated patient. Fracture probability may be lower if the patient has received treatment. Clinical Information Provided by Patient: Parent has had a hip fracture Has used the following medications: Vitamin D, Calcium Patient maximum height was 67 Menopause Age: 47 Does not regularly consume dairy products Drinks caffeinated beverages Onset of menses at age 16 Number of children 2 Impression: The patient has low bone mass, based on the Total Spine T-score. The patient has an estimated ten-year risk of hip fracture of 0.5% and an estimated ten-year risk of major fracture of 14%, based on the WHO FRAX algorithm. The patient has risk factors, including: parental hip fracture. Discussion: BONE DENSITY IS LOW AT ONE OR MORE SKELETAL SITES. This patient's lowest T-score is low at one or more skeletal sites. It meets the World Health Organization's (WHO) criteria for ?low bone mass? (T-score between -1.0 and -2.5). The patient's 10-year risk of fracture as calculated by FRAX is less than the threshold where pharmacological therapy is recommended by the National Osteoporosis Foundation (NOF). However, all treatment decisions require clinical judgment and consideration of individual patient factors, including patient preferences, comorbidities, previous drug use, risk factors not captured in the FRAX model (e.g., frailty, falls, vitamin D deficiency, increased bone turnover, interval significant decline in bone density) and possible under or overestimation of fracture risk by FRAX. The patient should follow a healthful lifestyle (good nutrition with adequate calcium and vitamin D, and appropriate weight-bearing exercise). Follow-Up: Consider repeating this study in 2 to 3 years to reassess this patient's status, or sooner if there is some new clinical indication. Reported by: TY on 12/20/2024 10:19:00 AM. Reviewed, dictated and finalized at location [facility]
--- OUTSIDE RECORDS SUMMARY | 2024-12-20 09:56 | XMS_ITS | Patient Health Summary ---
Author Organization [facility] Address [address] [place] [address] Care Team Providers Care Pharmaceutical Analyst Name Role Phone Gene Andres MD Primary Care Provider + Note from [facility],non-owned Affiliates and Associated Physician Practices is amultiple site organization consisting of ambulatory clinics and hospital sitesin [place], [place], [place] and [place]. This disclosure is being madepursuant to the Care Everywhere program and may not contain all information available regarding this patient. Last updated 18.[facility] Allergies * Erythromycin(Rash) -Medium Criticality * Penicillamine(Fever,Rash) -Medium Criticality * Sulfa Drugs(Rash) -Medium Criticality Medications * Be aware that medications may not be up to date on this document. Alwaysverify current medications with the patient. * cetirizine (ZYRTEC ALLERGY) 10 MG tablet * levothyroxine (SYNTHROID) 50 MCG tablet * multivitamin daily tablet * calcium carbonate-vitamin D (CALCIUM 600+D) 600-200 MG-UNIT tablet * acyclovir (ZOVIRAX) 400 MG tablet(Started 05/07/2020) * Other Estrogen supplement with progesterone * triamcinolone acetonide (KENALOG) 0.1 % ointment(Started 05/08/2020) Apply to affected area 3 times daily * predniSONE (DELTASONE) 10 MG tablet(Started 05/08/2020) Take 50 mg daily x 3 days, 40 mg daily x 3 days, 30 mg daily x 3 days, 20 mg daily x 3 days, 10 mg daily x 3 days. Take with food. Social History Tobacco Use Types Packs/Day Years Used Date Smoking Tobacco: Never Smokeless Tobacco: Never Sex and Gender Information Value Date Recorded Sex Assigned at Not on file Gender Identity Not on file Sexual Orientation Not on file Last Filed Vital Signs Vital Sign Reading Time Taken Comments Blood Pressure 124/72 05/08/2020 10:21 AM CDT Pulse 72 05/08/2020 10:21 AM CDT Temperature 36.8 C (98.2 F) 05/08/2020 10:21 AM CDT Respiratory Rate 14 05/08/2020 10:21 AM CDT Oxygen Saturation 98% 05/08/2020 10:21 AM CDT Inhaled Oxygen Concentration - - Weight 67.6 kg (149 lb) 05/08/2020 10:21 AM CDT Height 170.2 cm (5' 7 ) 05/08/2020 10:21 AM CDT Body Mass Index 23.34 05/08/2020 10:21 AM CDT Care Teams Pharmaceutical Analyst Relationship Specialty Start Date End Date Gene Andres MD [address] [address] PCP - General Family Medicine 05/08/20
--- OUTSIDE RECORDS SUMMARY | 2024-12-20 09:56 | XMS_ITS | Referral Summary ---
Author Organization [facility] Address [address] [place] [address] Care Team Providers Care Junior Technical Writer Name Role Phone Gene Andres MD Primary Care Prov ider Payal Cruz MD Unavailable [phone] Allergies Active Allergy Reactions Criticality Noted Date Comments Erythromycin Rash Medium 03/26/2019 Penicillins Hives Medium 03/26/2019 Sulfa (Sulfonamide Antibiotics) Rash Medium 03/12 Medications SYNTHROID 50 mcg tabletIndications:h ypothyroidism Take 1 tablet (50 mcg total) by mouth every morning 01/30/20 19 Active estradiol-norethind joya (ACTIVELLA) 1-0.5 mg per tablet Take 1 tablet by mouth every morning 03/19/20 19 Active multivitamin capsuleIndications: Vitamin Deficiency Prevention Take 1 capsule by mouth every morning Active cetirizine (ZyrTEC) 10 mg tabletIndications:S easonal Allergic Rhinitis Take 1 tablet (10 mg total) by mouth every morning Active calcium carbonate/vitamin D3 (CALCIUM 500 + D ORAL) Take 1 tablet by mouth every morning Active cholecalciferol, vitamin D3, (VITAMIN D3 ORAL) Take 5,000 Int'l Units by mouth every morning Active PREMARIN vaginal cream 06/03/20 19 Active acyclovir (ZOVIRAX) 400 mg tablet Take 1 tablet (400 mg total) by mouth 3 (three) times a day 05/07/20 20 Active clotrimazole (MYCELEX) 10 mg nereida TAKE 1 TABLET BY MOUTH FIVE TIMES DAILY WHILE AWAKE FOR 7 DAYS 05/08/20 20 Active Restasis 0.05 % ophthalmic emulsion 03/14/20 20 Active predniSONE (DELTASONE) 10 mg tablet PLEASE SEE ATTACHED FOR DETAILED DIRECTIONS 05/08/20 20 Active triamcinolone (KENALOG) 0.1 % ointment APPLY TO AFFECTED AREA 3 TIMES A DAY 05/08/20 20 Active albuterol HFA (ProAir HFA) 90 mcg/actuation inhalerIndications: Acute nasopharyngitis Inhale 2 puffs every 4 (four) hours as needed for wheezing or shortness of breath 8.5 g 03/21/20 22 Active fluticasone propionate (FLONASE) 50 mcg/actuation nasal spray 03/17/20 24 Active prednisoLONE acetate (PRED FORTE) 1 % ophthalmic suspension SHAKE LIQUID AND INSTILL 1 DROP IN BOTH EYES THREE TIMES DAILY FOR 1 WEEK 02/27/20 24 Active spironolactone (ALDACTONE) 100 mg tablet Take 1 tablet (100 mg total) by mouth daily 03/12/20 24 Active benzonatate (TESSALON) 200 mg capsuleIndications: Pneumonia of right lower lobe due to infectious organism Take 1 capsule (200 mg total) by mouth 3 (three) times a day as needed for cough 30 capsule 03/28/20 24 Active Active Problems Problem Noted Date Diagnosed Date Fibrocystic breast changes of both breasts 06/02 History of abnormal mammogram 05/30/2021 Radial scar of breast 05/26/2020 Abnormal mammogram 05/14/2019 Overview (05/14/2019): Added automatically from request for surgery [id number] Abnormal findings on diagnostic imaging of david t 03/26/2019 Social History Tobacco Use Types Packs/Day Years Used Date Smoking Tobacco: Never Smokeless Tobacco: Never Tobacco Cessation:Counseling Given: Not Answered Alcohol Use Standard Drinks/Week Comments Yes 0 (1 standard drink = 0.6 oz pur e alcohol) rare Comments No Sex and Gender Information Value Date Recorded Sex Assigned at Not on file 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 Gender Identity Female 05/25/2020 1:54 PM CDT Sexual Orientation Straight 05/25/2020 1: 54 PM CDT Last Filed Vital Signs Vital Sign Reading Time Taken Comments Blood Pressure 140/86 03/28/2024 11:57 AM CDT EDDIE OLGUIN Pulse 85 03/28/2024 11:57 AM CDT Temperature 37.1 C (98.7 F) 03/28/2024 11:57 AM CDT Respiratory Rate 28 03/28/2024 11:57 AM CDT Oxygen Saturation 99% 03/28/2024 11:57 AM CDT Inhaled Oxygen Concentration - - Weight 67.1 kg (148 lb) 03/28/2024 11:57 AM CDT Height 170.2 cm (5' 7 ) 03/28/2024 11:57 AM CDT Body Mass Index 23.18 03/28/2024 11:57 AM CDT Plan of Treatment Not on file Procedures Procedure Name Priority Date/Time Associated Diagnosis Comments SCREENING MAMMOGRAM BILATERAL W COLIN Schedule Routine, Read Routine (OP Routine) 06/04/2024 11:45 AM CDT History of abnormal mammogram Fibrocystic breast changes, bilateral from Last 3 Months or Most Recently Relevant to Health Maintenance Results * Screening Mammogram Bilateral W Colin (06/04/2024 11:45 AM CDT) Anatomical Region Laterality Modality Breast Bilateral Mammography Narrative 06/05/2024 12:08 PM CDT Mammogram Technique: Bilateral Digital Breast Tomosynthesis, Bilateral C-view 2D Screening mammogram. Views obtained: bilateral craniocaudal and bilateral mediolateral oblique. Computer Aided Detection was performed. Mammogram Findings: The present examination has been compared to prior imaging studies performed at [facility] on 05/30/2021, 05/31/2022 and 06/04/2023. There are scattered areas of fibroglandular density. There is no suspicious abnormality in either breast. There are no significant changes from the prior study. Impression: There is no mammographic evidence of malignancy. Annual screening mammography is recommended. OVERALL FINAL ASSESSMENT: BI-RADS CATEGORY 1: Negative. Procedure Note Abdoulaye Ellsworth MD - 06/05/2024 Mammogram Technique: Bilateral Digital Breast Tomosynthesis, Bilateral C-view 2D Screening mammogram. Views obtained: bilateral craniocaudal and bilateral mediolateral oblique. Computer Aided Detection was performed. Mammogram Findings: The present examination has been compared to prior imaging studies performed at [facility] on 05/30/2021, 05/31/2022 and 06/04/2023. There are scattered areas of fibroglandular density. There is no suspicious abnormality in either breast. There are no significant changes from the prior study. Impression: There is no mammographic evidence of malignancy. Annual screening mammography is recommended. OVERALL FINAL ASSESSMENT: BI-RADS CATEGORY 1: Negative. Anita Crystal NP IMG MAMMO PROCEDURES Fin al Result from Last 3 Months or Most Recently Relevant to Health [place] [address] [facility] [place] [address] [facility] [place] [address] [facility] CHO[facility] PLUS Care Teams Junior Technical Writer Relationship Specialty Start Date End Date Gene Andres MD PCP - General Family Medicine 03/14/19 Payal Cruz MD [address] [place] [id number] Referring Physician Gynecology 03/14/19
--- OUTSIDE RECORDS SUMMARY | 2024-12-20 09:56 | XMS_ITS | Clinical Summary ---
Author Organization [facility] Address [address] [place] [address] Care Team Providers Care Computer Forensics Analyst Name Role Phone Gene Andres MD Primary Care Prov ider Payal Cruz MD Unavailable [phone] Allergies Active Allergy Reactions Criticality Noted Date [...] (05/14/2019): Added automatically from request for surgery [id number] Abnormal findings on diagnostic imaging of david t 03/26/2019 Surgical History Surgery Date Site/Laterality Comments TONSILLECTOMY 11/12/1986 - 11/11/1987 DILATION AND CURETTAGE OF UTERUS 11/12/1992 - 11/11/1993 LASIK 11/12/1996 - 11/11/1997 Bilateral BREAST BIOPSY 04/15/2019 Right Medical History Medical History Date Comments Thyroid disease Family History Medical History Relation Name Comments Hodgkin's lymphoma Father Breast cancer Maternal Grandmother Breast cancer Maternal Great-Grandmother Melanoma Mother's Sister Relation Name Status Comments Father Maternal Grandmother Maternal Great-Grandmother Mother's Sister Social History Tobacco Use Types Packs/Day Years Used Date Smoking Tobacco: Never Smokeless Tobacco: Never Tobacco Cessation:Counseling Given: Not Answered Alcohol Use Standard Drinks/Week Comments Yes 0 (1 standard drink = 0.6 oz pur e alcohol) rare Comments No Sex and Gender Information Value Date Recorded Sex Assigned at Not on file 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 Gender Identity Female 05/25/2020 1:54 PM CDT Sexual Orientation Straight 05/25/2020 1: 54 PM CDT Obstetrics History Last Filed Vital Signs Vital Sign Reading Time Taken Comments Blood Pressure 140/86 03/28/2024 11:57 AM CDT MA CHINE Pulse 85 03/28/2024 11:57 AM CDT Temperature [...] 03/28/2024 11:57 AM CDT Plan of Treatment Health Maintenance Due Date Last Done Comments Cervical Cancer Screening 1965 Colon Cancer Screening-Colonoscopy 1964 Depression Screening 1964 Hepatitis C Screening 1964 DTaP/Tdap/Td Vaccine (1 - Tdap) 1975 Hepatitis B Screening 1982 Regular Well Visit/Exam 18-64 1982 Zoster Vaccine (1 of 2) 2014 Influenza Vaccine (#1) 2024 08/23/2017, 2015 Breast Cancer Screening-Mammogram 06/04/2025 06/04/2024, 06/04/2023, 05/31/2022, Additional history exists Pneumococcal vaccine <65 Aged Out No longer eligible based on patient's age to complete this topic Procedures Procedure Name Priority Date/Time Associated Diagnosis [...] compared to prior imaging studies performed at [facility] on 05/30/2021, 05/31/2022 and 06/04/2023. There are [...] compared to prior imaging studies performed at [facility] on 05/30/2021, 05/31/2022 and 06/04/2023. There are [...] Most Recently Relevant to Health [place] [address] [facility] Address: [address] [place] [address] [place] [address] [facility]O Address: [address] [place] [address] [place] [address] [facility]O Address: [address] [place], [place] [id number] Care Teams Computer Forensics Analyst Relationship Specialty Start Date End Date Gene Andres MD PCP - General Family Medicine 03/14/19 Payal Cruz MD [address] [address] Referring Physician Gynecology 03/14/19
--- OUTSIDE RECORDS SUMMARY | 2024-12-20 09:56 | XMS_ITS | Clinical Summary ---
Author Organization [facility] Address [address] [place] [address] Care Team Providers Care Tray Service Worker Name Role Phone Gene Andres MD Primary Care Provider + Source Comments [facility],non-Critical access hospitalates and Associated Physician Practices is amultiple site organization consisting of ambulatory clinics and hospital sitesin [place], [place], [place] and [place]. This disclosure is being madepursuant to the Care Everywhere program and may not contain all information available regarding this patient. Last updated 18.[facility] Allergies Active Allergy Reactions Criticality Noted Date Comments Erythromycin Rash Medium 05/08/2020 Penicillamine Fever,Rash Medium 05/08/2020 Sulfa Drugs Rash Medium 05/08/2020 Medications * Be aware that medications may not be up to date on this document. Alwaysverify current medications with the patient. Medication Sig Dispensed Refills Start Date End Date Status cetirizine (ZYRTEC ALLERGY) 10 MG tablet Active levothyroxine (SYNTHROID) 50 MCG tablet Active multivitamin daily tablet Active calcium carbonate-vitamin D (CALCIUM 600+D) 600-200 MG-UNIT tablet Active acyclovir (ZOVIRAX) 400 MG tablet 05/07/2020 Active Other Estrogen supplement with progesterone Active triamcinolone acetonide (KENALOG) 0.1 % ointmentIndication s:Dermatitis due to sun Apply to affected area 3 times daily 80 g 05/08/2020 Active predniSONE (DELTASONE) 10 MG tabletIndications: Dermatitis due to sun Take 50 mg daily x 3 days, 40 mg daily x 3 days, 30 mg daily x 3 days, 20 mg daily x 3 days, 10 mg daily x 3 days. Take with food. 45 tablet 05/08/2020 Active Family History Medical History Relation Name Comments Hodgkin's lymphoma Father Relation Name Status Comments Father Social History Tobacco Use Types Packs/Day Years [...] Mass Index 23.34 05/08/2020 10:21 AM CDT Plan of Treatment Health Maintenance Due Date Last Done Comments COLOGUARD (AGES 45-75) - COL ON CA SCREENING 1964 COLON MONITORING 1964 COLONOSCOPY - COLON CA SCREENING 1964 CT COLONOGRAPHY - COLON CA SCREENING 1964 Colorectal Cancer Screening 1964 FIT - COLON CA SCREENING 1964 FLEX SIG - COLON CA SCREENING 1964 LIPID TESTING 1964 MAMMOGRAM 1964 PAP SMEAR 1964 HIV SCREENING 1979 HEPATITIS C SCREENING 09/21/1982 DTAP/TDAP/TD VACCINES (1 - Tdap) 1983 PNEUMOCOCCAL VACCINE 50+ (1 of 1 - PCV) 2014 ZOSTER VACCINE (1 of 2) 2014 COVID-19 VACCINE ( - 2023-2 5 season) 2024 INFLUENZA VACCINE (#1) 2024 DEPRESSION SCREENING 11/12/2024 Respiratory Syncytial Virus (RSV) Vaccine Pt: or over 60 yrs (1 - 1-dose 75+ series) 2039 HEPATITIS B VACCINE Aged Out No longe r eligible based on patient's age to complete this topic HIB VACCINE Aged Out No longer eligi ble based on patient's age to complete this topic HPV VACCINE Aged Out No longer eligi ble based on patient's age to complete this topic MENINGOCOCCAL (Group B) VACCINE Aged Out No longer eligible based on patient's age to complete this topic MENINGOCOCCAL VACCINE Aged Out No hamzah desmond eligible based on patient's age to complete this topic PNEUMOCOCCAL VACCINE Aged Out No long er eligible based on patient's age to complete this topic Care Teams Tray Service Worker Relationship Specialty Start Date End Date Gene Andres MD [address] [address] PCP - General Family Medicine 05/08/20
--- OUTSIDE RECORDS SUMMARY | 2024-12-20 09:56 | XMS_ITS | Referral Summary ---
Author Organization [facility] Address [address] [address] Care Team Providers Care Shaper Set Up Operator Name Role Phone Gene Andres MD Primary Care Provider + Source Comments [facility] and [facility]ician Practices is amultiple site organization consisting of ambulatory clinics and hospital sitesin [place], [place], [place] and [place]. This disclosure is being madepursuant to the Care Everywhere program and may not contain all information available regarding this patient. Last updated 18.[facility] Allergies Active Allergy Reactions Criticality Noted Date [...] Take with food. 45 tablet 05/08/2020 Active Social History Tobacco Use Types Packs/Day Years [...] 05/08/2020 10:21 AM CDT Plan of Treatment Not on file Care Teams Shaper Set Up Operator Relationship Specialty Start Date End Date Gene Andres MD [address] [facility] [address] [place] [address] PCP - General Family Medicine 05/08/20
== END 2024-12-20 09:51 | disposition home or self-care (01) ==
LOC: ANHIMG 09:55
PROVIDERS: PCP Family Medicine Adolescent Medicine; Visit Provider Nurse Practitioner
DX: M85.88 Other specified disorders of bone density and structure, other site (principal); M85.852 Other specified disorders of bone density and structure, left thigh
CPT/HCPCS: 77080

== ENCOUNTER 2025-10-06 08:01 | Emergency (ER) | payer OTHER, SELFPAY ==
--- NOTE | 2025-10-06 08:06 | ED.URI ---
HPI - URI/Sore Throat General Chief Complaint: Upper Respiratory Infection Stated Complaint: COUGH/HOARSE/HEADACHE Time Seen by Provider: 10/06/25 08:14 Source: patient, RN notes reviewed and old records reviewed Mode of arrival: ambulatory Limitations: no limitations History of Present Illness HPI Narrative: 60-year-old female presents to the [facility] with complaints of 10 day history of cough, headache and sinus congestion. Also reports a hoarse voice. Got worse on Sunday night Sunday morning. States the voice has improved. Denies fevers, chest pain, shortness of breath. Has taken DayQuil and NyQuil. States that she has also taken some flu and cold medicine Onset (ago): day(s) (10) Treatments prior to arrival: cold medicine Related Data Home Medications ?Medication ?Instructions ?Recorded ?Confirmed ?Last Taken ?Type calcium 600 mg (as 1 tablet PO DAILY 09/20/21 10/06/25 10/02/21 History carbonate)-vitamin D3 5 mcg (200 unit) tablet cholecalciferol (vitamin D3) 25 25 mcg PO DAILY 09/20/21 10/06/25 10/02/21 History mcg (1,000 unit) tablet (Vitamin D3) multivit with minerals-iron 18 1 tablet PO DAILY 09/20/21 10/06/25 10/02/21 History mg-folic ac 400 mcg-vit K 25 mcg tablet (Adults Multivitamin) estradiol-norethindrone acet 1 1 tablet PO DAILY 06/20/23 10/06/25 Unknown History mg-0.5 mg tablet (Activella) fluticasone propionate 50 2 spray intranasal DAILY 05/13/24 10/06/25 Unknown History mcg/actuation nasal spray,suspension spironolactone 100 mg tablet 100 mg PO DAILY 05/13/24 10/06/25 Unknown History Allergies Allergy/AdvReac Type Severity Reaction Status Date / Time Penicillins Allergy Severe HIVES, Verified 10/06/25 08:52 FEVER azithromycin Allergy Intermediate RASH Verified 10/06/25 08:52 erythromycin base Allergy Intermediate RASH Verified 10/06/25 08:52 sulfamethoxazole Allergy Intermediate RASH Verified 10/06/25 08:52 Review of Systems Review of Systems: All systems reviewed & are unremarkable except as noted in HPI and below Constitutional: Constitutional: Reports as per HPI ENT: Reports as per HPI Cardiovascular: Cardiovascular: Reports no additional cardiovascular complaints, Denies chest pain and Denies dyspnea Respiratory: Respiratory: Reports as per HPI, Denies chest congestion, Reports cough and Denies dyspnea Musculoskeletal: Musculoskeletal: Reports no additional musculoskeletal complaints Integumentary/Breasts: Skin/Breast: Reports system reviewed and no additional complaints, except as docu PMFSH Past Medical History Medical History Abnormal colonoscopy 10/02 1 polyp Hx of fracture of ankle left ankle Hypothyroidism Seasonal allergies Surgical History Surgical History History of breast biopsy 2019 Benign Hx of tonsillectomy Family History Family History Mother Rheumatoid arthritis Hypertension Father Hodgkin's lymphoma Grandparent Breast cancer Other Colon polyp Social History Social History Smoking status: Never smoker Second hand tobacco smoke exposure: No Alcohol intake: current Drinks per week: 1 Alcohol use details: Socially Substance use: never Substance use type: does not use Lack of Transportation: No Lack of Food: Never True Current Housing: I Have Housing Concerned About Future Housing: No Difficulty Paying Gas/Electric Bills: No Difficulty Paying for Meds: No Currently Unemployed: No Education: Bachelor's Degree Difficulty w/ Childcare or Family Care: No Living arrangements: with family Occupation/Education: occupation Gender identity (if verbalized by the patient): Female Sexual Orientation (if Verbalized by the Patient): Straight or Heterosexual Spiritual care concerns: No Agree to blood products: Yes Comments At the time of my signature, I reviewed and agree with the nursing past medical, surgical, social, and family history. There is no relevant family history pertinent to the patient complaint. Exam Const: General: cooperative, no acute distress, well developed, alert, tired appearing, uncomfortable and well nourished Nutritional Appearance: well nourished Orientation/consciousness: patient oriented x3 Limitations: no limitations HENMT: Head: normal to inspection Ears: hearing grossly normal bilaterally, external ears normal, TM's normal bilaterally, EAC's normal, mastoids normal and no periauricular adenopathy Face/Nose/Sinus: Normal external nose present and face symmetric Face and sinus: normal facial exam and face symmetric Mouth: Yes Normal oral and palatal mucosa present, Yes lip normal, Yes tongue normal and Yes moist mucous membranes Throat: posterior oropharynx normal, uvula midline and no uvular edema Eyes: General: appearance normal, both eyes and all related structures Alignment and Position: alignment normal Neck: Neck: normal visual inspection, full ROM, no lymphadenopathy and no meningeal signs Chest: Chest palpation & inspection: normal inspection of the chest Resp: Effort & Inspection: normal respiratory effort and able to speak in complete sentences Auscultation: clear to auscultation bilaterally, no crackles, no rales, no rhonchi and no wheezes Cardio: Rate: regular rate Skin: General skin exam: normal color and no rashes or lesions noted Neuro: General: patient oriented x3, gait normal, moves all extremities and no meningeal signs Cognition (Neuro): normal cognition Speech: normal speech Gait exam (Neuro): Normal gait present Extrem: General: normal to inspection, full ROM, capillary refill normal and normal gait Psych: Appearance: grossly normal and well kempt Mental Status: mental status grossly normal Speech and movement: Normal speech and movement present and Clear speech present Affect: normal affect Attitude: cooperative Course Course Level of Care: Express Care Visit Vital Signs Vital signs: Vital Signs Oxygen Delivery Room Air 10/06/25 08:05 Temperature 98.2 F 10/06/25 08:14 Pulse Rate 81 10/06/25 08:14 Respiratory Rate 16 10/06/25 08:14 Blood Pressure 159/84 H 10/06/25 08:14 Pulse Oximetry 100 10/06/25 08:14 Oxygen Delivery Room Air 10/06/25 08:05 Reviewed MDM - URI/Sore Throat MDM Narrative Medical decision making narrative: patient sitting in exam room. Patient is uncomfortable in appearance. Ten day history of increasing cough, hoarse voice, headache, sinus pain and pressure. States that it got worse Sunday night Sunday morning. Due to patient's symptoms of 10 days, will prescribe an antibiotic, discussed using Flonase nasal spray and [id number] products as well. Patient is appropriate for outpatient treatment with close follow-up Discharge instructions reviewed with patient, as well as provided in writing per nursing staff. The instructions also include specific and strict return/GO TO THE ER as well as f/u information. All questions have been answered, and the patient deny any further questions with discharge and discharge plan. Some parts of this dictation were generated by voice recognition software and may contain typographical and/or grammatical inaccuracies. Differential Diagnosis Differential diagnosis: Likely upper respiratory infection, otitis media, sinusitis, viral infection, bronchitis, influenza and pharyngitis Critical Care Time Critical Care Time Critical Care Time: No Discharge Plan Discharge Clinical Impression: Sinusitis Qualifiers: Sinusitis location: pansinusitis Chronicity: acute Recurrence: not specified as recurrent Qualified Code(s): J01.40 - Acute pansinusitis, unspecified Patient Disposition: Home Condition: Stable Instructions: Antibiotic Form, Sinusitis (ED), Upper Respiratory Infection (ED) Additional Instructions: It is very important to treat your symptoms. Drink plenty of water, Gatorade, Pedialyte, ice pops or Jell-O. -Alternate Tylenol and Motrin per package directions for fever or pain. You can alternate every 4 hours -Antihistamine medication such as Zyrtec/Claritin/Radhika during the day can help improve symptoms. -doing daily nasal irrigations can help relieve pressure your sinuses. Things like a Neti pot -Use Flonase twice a day for 3-5 days then daily to help reduce the inflammation and dry up your sinuses. -You can also use Mucinex. Be sure to drink plenty of water with this medication at least 8 ounces with every dose and it is important to drink 8 to 10 glasses of water per day. Water is a natural decongestant -Eat and drink things that are easy to swallow, like tea or soup, or popsicles. -Oral rinses such as: Salt water gargles and/or may use topical anesthetic (eg. Chloraseptic spray) or lozenges to relieve dryness or throat pain). -Frequent hand washing or hand [employer] is one of the best ways to prevent spread of infection. -Using a vaporizer or humidifier at night will also help thin secretions and help with coughing up phlegm. -Follow up with primary care provider in 7-10 days if condition is not improving - For new or worsening symptoms go directly to the nearest ER Patient Language: Irish Prescriptions: New doxycycline monohydrate 100 mg tablet 100 mg PO BID Qty: 14 0RF No Action estradiol-norethindrone acet [Activella] 1-0.5 mg tablet 1 tablet PO DAILY fluticasone propionate 50 mcg/actuation spray,suspension 2 spray intranasal DAILY Rx Instructions: administer into each nostril spironolactone 100 mg tablet 100 mg PO DAILY calcium carbonate-vitamin D3 600 mg(1,500mg) -200 unit Tablet 1 tablet PO DAILY cholecalciferol (vitamin D3) [Vitamin D3] 25 mcg (1,000 unit) Tablet 25 mcg PO DAILY Adults Multivitamin 18 mg iron-400 mcg-25 mcg Tablet 1 tablet PO DAILY levothyroxine 50 mcg tablet See Rx Instructions .ROUTE .COMPLEX Qty: 90 2RF Dose Instruction: TAKE 1 TABLET DAILY Rx Instructions: TAKE 1 TABLET DAILY Follow-up/Referrals: Sania Riley DO [Primary Care Provider, Family Practice] - 2 Weeks Clinical Impression: Sinusitis Stand Alone Forms: Work/School Release IP Time of Disposition: 08:26
[2025-10-06 08:14] VITALS: BP 159/84; PULSE 81; RESP 16; TEMP 36.8; O2SAT 100
== END 2025-10-06 08:40 | disposition home or self-care (01) ==
PROVIDERS: Emergency Provider Nurse Practitioner; PCP Family Medicine
DX: J01.40 Acute pansinusitis, unspecified (principal); E03.9 Hypothyroidism, unspecified
CPT/HCPCS: 99213; G0463

== ENCOUNTER 2025-11-06 11:10 | Outpatient (CLI) | payer OTHER, SELFPAY ==
--- NOTE | ~2025-11-06 | XR_ITS ---
XR abdomen/kub 1V 11/06/2025 11:29 Indication: Kidney stone Procedure: KUB Comparison: Comparison to multiple prior studies sequentially, with oldest reviewed study dated 06/16/2024. Findings: Bowel gas pattern nonobstructive. There are bilateral renal stones. There are pelvic phleboliths. Moderate colonic fecal loading. No acute osseous abnormality. Impression: 1: Bilateral nephrolithiasis. Reviewed, dictated and finalized at location O. TENANCE DIRECTOR Impression: 1: Bilateral nephrolithiasis.
--- OUTSIDE RECORDS SUMMARY | 2025-11-06 11:13 | XMS_ITS | Clinical Summary ---
Author Organization [facility] Address [address] [place] [id number] Care Team Providers Care Pulmonary Care Nurse Name Role Phone Unavailable Primary Care Provider Unavailabl e Social History Tobacco Use Types Packs/Day Years Used Date Smoking Tobacco: Never Assessed Comments Unknown Sex and Gender Information Value Date Recorded Sex Assigned at Not on file Legal Sex Female 7:07 PM CDT Gender Identity Not on file Sexual Orientation Not on file Plan of Treatment Health Maintenance Due Date Last Done Comments Cervical Cancer Screening Pa p Smear (Age 30 to 64) Every 3 Years 1964 Colorectal Cancer Screening Colonoscopy (10 Years) 1964 Annual Physical 1967 Hepatitis C 1982 DTaP, Tdap and Td Vaccines ( 1 - Tdap) 1983 Cervical Cancer Screening Pa p with HPV Testing (Age 30 to 64) Every 5 Years 1994 Cervical Cancer Screening with HPV 1994 Mammogram Screening 2004 Pneumococcal Vaccine: 50+ Ye ars (1 of 1 - PCV) 2014 Zoster Vaccines (1 of 2) 2014 COVID-19 Vaccine (2024-2 6 season) 2025 Influenza Adult (#1) 2025 RSV Immunization or 60+ Years (1 - 1-dose 75+ series) 2039 Hepatitis A Vaccines Aged Out No long er eligible based on patient's age to complete this topic Meningococcal B Vaccine Aged Out No l onger eligible based on patient's age to complete this topic Meningococcal Vaccine Aged Out No hamzah desmond eligible based on patient's age to complete this topic RSV Immunizations Under 20 Months Aged Out No longer eligible based on patient's age to complete this topic
--- OUTSIDE RECORDS SUMMARY | 2025-11-06 11:13 | XMS_ITS | Clinical Summary ---
Author Organization [facility] Address [address] [place] [address] Care Team Providers Care Sterile Preparation Technician Name Role Phone Gene Andres MD Primary Care Provider + Source Comments [facility] Affiliates and Associated Physician Practices is amultiple site organization consisting of ambulatory clinics and hospital sitesin [place], [place], [place] and [place]. This disclosure is being madepursuant to the Care Everywhere program and may not contain all information available regarding this patient. Last updated 18.[facility] Allergies Active Allergy Reactions Criticality Noted Date Comments Erythromycin Rash Medium 05/08/2020 Penicillamine Fever,Rash Medium 05/08/2020 Sulfa Drugs Rash Medium 05/08/2020 Medications * Be aware that medications may not be up to date on this document. Alwaysverify current medications with the patient. cetirizine (ZYRTEC ALLERGY) 10 MG tablet Active levothyroxine (SYNTHROID) 50 MCG tablet Active multivitamin daily tablet Active calcium carbonate-vitam in D (CALCIUM 600+D) 600-200 MG-UNIT tablet Activ e acyclovir (ZOVIRAX) 400 MG tablet 0 Active Other Estrogen supplement with progesterone Active triamcinolone acetonide (KENALOG) 0.1 % ointmentIndicat ions:Dermatitis due to sun Apply to affected area 3 times daily 80 g 0 Active predniSONE (DELTASONE) 10 MG tabletIndicatio ns:Dermatitis due to sun Take 50 mg daily x 3 days, 40 mg daily x 3 days, 30 mg daily x 3 days, 20 mg daily x 3 days, 10 mg daily x 3 days. Take with food. 45 tablet 0 Active Family History Medical History Relation Name Comments Hodgkin's lymphoma Father Relation Name Status Comments Father Social History Tobacco Use Types Packs/Day Years Used Date Smoking Tobacco: Never Smokeless Tobacco: Never Comments Unknown Sex and Gender Information Value Date Recorded Sex Assigned at Not on file Legal Sex Female 2:11 AM CDT Gender Identity Not on file Sexual [...] 10:21 AM CDT Height 170.2 cm (5' 7) 05/08/2020 10:21 AM CDT Body Mass Index [...] SCREENING 1964 LIPID TESTING 1964 MAMMOGRAM 1964 HIV SCREENING 1979 HEPATITIS C SCREENING 09/21/1982 DTAP/TDAP/TD VACCINES (1 - Tdap) 1983 PNEUMOCOCCAL VACCINE 50+ (1 of 1 - PCV) 2014 ZOSTER VACCINE (1 of 2) 2014 DEPRESSION SCREENING 11/12/2024 COVID-19 VACCINE (1 - 2024-2 6 season) 2025 INFLUENZA VACCINE (#1) 2025 Respiratory Syncytial Virus (RSV) Vaccine Pt: or [...] to complete this topic MENINGOCOCCAL (Group B) VACC INE SHARED DECISION-MAKING Aged Out No longer eligibl e based on patient's age to complete this topic MENINGOCOCCAL GROUPS A/C/Y/W VACCINE Aged Out No longer eligible b ased on patient's age to complete this topic Insurance [facility] [place] [address] [facility] Care Teams Sterile Preparation Technician Relationship Specialty Start Date End Date Gene Andres MD [address] [place] [address] PCP - General Family Medicine 05/08/20
--- OUTSIDE RECORDS SUMMARY | 2025-11-06 11:13 | XMS_ITS | Clinical Summary ---
Author Organization [facility] Address [address] [place] [address] Care Team Providers Care General Lot Attendant Name Role Phone Gene Andres MD Primary Care Prov ider Payal Cruz MD Unavailable Allergies Active Allergy Reactions Criticality Noted Date [...] (05/14/2019): Added automatically from request for surgery [id number] Abnormal findings on diagnostic imaging of david t 03/26/2019 Immunizations Immunization Administration Dates Next Due Influenza, Quadrivalent, Split, Intramuscular Influenza, Quadrivalent, Spl it, Preservative Free, Intramuscular 08/21/2020 Influenza, Trivalent, Preservative Free, Intramu scular 08/23/2017,08/14/2016 Surgical History Surgery Date Site/Laterality Comments TONSILLECTOMY [...] on file 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 Gender Identity Female 05/25/2020 1:54 PM CDT [...] CDT Inhaled Oxygen Concentration - - Weight 66.9 kg (147 lb 6.4 oz) 06/09/2025 2:49 P M CDT Height 169.2 cm (5' 6.63) 06/09/2025 2:49 PM CD T Body Mass Index 23.34 06/09/2025 2:49 PM CDT Plan of Treatment Health Maintenance Due Date Last Done Comments Cervical Cancer Screening 1964 Colon Cancer Screening-Colonoscopy 1964 Depression Screening 1964 Hepatitis C Screening 1964 Hepatitis B Screening 1982 Regular Well Visit/Exam 18-64 1982 Zoster Vaccine (2 of 3) 11/12/2020 09/17/2020, 06/01 Influenza Vaccine (#1) 2025 , 08/08/2023, 08/19/2022, Additional history exists Breast Cancer Screening-Mammogram 06/09/2026 06/09/2025, 06/04/2024, 06/04/2023, Additional history exists DTaP/Tdap/Td Vaccine (2 - Td or Tdap) 08/12/2033 08/12/2023 Pneumococcal vaccine <65 Aged Out No longer eligible based on patient's age to complete this topic Procedures Procedure Name Priority Date/Time Associated Diagnosis Comments SCREENING MAMMOGRAM BILATERAL W SEBASTI[place]N Schedule Routine, Read Routine (OP Routine) 06/09/2025 3:13 PM CDT Fibrocystic breast changes of both breasts from Last 3 Months or Most Recently Relevant to Health Maintenance Results * Screening Mammogram Bilateral W [place] (06/09/2025 3:13 PM CDT) Anatomical Region Laterality Modality Breast Bilateral Mammography Impressions 06/10/2025 10:15 AM CDT Bilateral No evidence of malignancy in either breast. OVERALL BI-RADS FINAL ASSESSMENT: 2 - Benign RECOMMENDATION: Recommend bilateral annual screening mammography. If supplemental screening is desired for heterogeneously dense breast tissue, consider breast MRI every 1-2 years. If breast MRI cannot be performed, contrast-enhanced mammography is an alternative. Narrative 06/10/2025 10:15 AM CDT EXAMINATION: Screening Mammogram Bilateral W Sebastián: 06/09/2025 COMPARISON: Relevant prior studies available at the time of interpretation were reviewed, including the most recent mammogram on: 06/04/2024. TECHNIQUE: Mammography was performed with 2D and digital breast tomosynthesis (DBT) images. CAD was utilized. BREAST PARENCHYMAL COMPOSITION: The breasts are heterogeneously dense, which may obscure small masses. FINDINGS: Bilateral There is no suspicious mass, calcification, or architectural distortion in either breast. There are no significant changes from the prior study. Divina Berry NP IMG MAMMO PROCEDURES Final Result from Last 3 Months or Most Recently Relevant to [place] [address] [facility] CHOICE PLUS [facility] PLUS [facility] Care Teams General Lot Attendant Relationship Specialty Start Date End Date Gene Andres MD PCP - General Family Medicine 03/14/19 Payal Cruz MD [address] [address] Referring Physician Gynecology 03/14/19
== END 2025-11-06 11:11 | disposition home or self-care (01) ==
PROVIDERS: PCP Family Medicine; Visit Provider Urology
DX: N20.0 Calculus of kidney (principal)
CPT/HCPCS: 74018